=== PATIENT | male | born 1955 | race Two or more races ===

== ENCOUNTER → 2020-10-09 | Outpatient (CLI) | payer OTHER | END | disposition home or self-care (01) | LOC: LAB 06:42 | PROVIDERS: ATTEND Nurse Practitioner Family | DX: N39.0 Urinary tract infection, site not specified (principal); R30.0 Dysuria; R82.90 Unspecified abnormal findings in urine | CPT/HCPCS: 87086 ==

== ENCOUNTER 2022-11-09 18:51 | Emergency (ER) | payer OTHER ==
[~2022-11-09] VITALS: Ht 157.5 cm; Wt 73.5 kg
[2022-11-09] MEDS ORDERED: TETRACAINE HCL 0.5% OPTH(EYE) SOLN 4ML RIGHTEYE ONE (23:00)
[2022-11-09] MEDS ORDERED: CIPR0.3S4 OP (23:29)
[2022-11-09 23:54] VITALS: BP 165/81; PULSE 79; RESP 19; TEMP 98; O2SAT 97
== END 2022-11-09 23:51 | disposition home or self-care (01) ==
LOC: ER 18:51
DX: T15.11XA Foreign body in conjunctival sac, right eye, initial encounter (principal); I10 Essential (primary) hypertension; F17.210 Nicotine dependence, cigarettes, uncomplicated; Z79.2 Long term (current) use of antibiotics; X58.XXXA Exposure to other specified factors, initial encounter; Y93.89 Activity, other specified; Y92.89 Other specified places as the place of occurrence of the external cause; Y99.8 Other external cause status

== ENCOUNTER 2024-01-03 10:55 | Emergency (ER) | payer BC, OTHER ==
[~2024-01-03] VITALS: Ht 157.5 cm; Wt 69.1 kg
[~2024-01-03 10:55] MED LIST: CIPR0.3S19 OP
[2024-01-03 12:01] VITALS: BP 169/98; PULSE 91; RESP 18; TEMP 98.4; O2SAT 94
[2024-01-03] MEDS ORDERED: MELO15TA29 PO (13:00)
[2024-01-03] MEDS ORDERED: PRED20TA2 PO (13:00)
[2024-01-03] MEDS ORDERED: LIDO5DIS21 TOP (13:01)
[2024-01-03] MEDS ORDERED: TRAM50TA2 PO (13:09)
== END 2024-01-03 13:01 | disposition home or self-care (01) ==
LOC: ER 11:05
DX: M25.511 Pain in right shoulder (principal); I10 Essential (primary) hypertension; F17.210 Nicotine dependence, cigarettes, uncomplicated; Z79.899 Other long term (current) drug therapy
CPT/HCPCS: 73030

== ENCOUNTER 2024-04-09 20:25 | Inpatient (IN) | payer BC ==
[~2024-04-09] VITALS: Ht 154.9 cm; Wt 65.4 kg
[2024-04-09 20:00] VITALS: PULSE 18; PULSE 85; RESP 18; O2SAT 95
[~2024-04-09 20:25] MED LIST changes: +LIDO5DIS21 TOP; +PRED20TA2 PO; +TRAM50TA2 PO
--- NOTE | 2024-04-09 21:12 | ED.PDOC ---
GI ASSESSMENT HPI Comments HPI: HPI: Poor Historian. 69-year-old male presents to emergency department for evaluation of rectal bleeding for at least two weeks that is progressively getting worse. Patient has history of ulcerative colitis and was supposed to be on infusions once a week for two months and then once every eight weeks. Patient only has a total of two infusion doses and stopped because he could not afford it anymore. That is when his bleeding started to worsen. Patient complains of left-sided abdominal pain nonspecific nonradiating. Patient is not on blood thinners. Past Medcial History: Chronic leg and back pain, ulcerative colitis, hypertension Past Surgical History: Knee surgery, hernia surgery Initial Vital Signs: Temp: 97.9F HR: 100 RR: 16 BP: 121/76 SpO2: 96% prince, REVIEW OF SYSTEMS: CONSTITUTIONAL: Denies acute: fever, diaphoresis, chills, generalized weakness. HEAD: Denies acute: headache, photophobia Eyes: Denies acute: Double vision, vision loss, eye pain, eye discharge. EARS: Denies acute: tinnitus, hearing loss, ear discharge, ear pain, THROAT: Denies acute: sore throat, swelling, difficulty swallowing , pain with swallowing, change in voice. NECK: Denies acute: neck pain, neck swelling, stiff neck. HEART: Denies acute : chest pain, palpitations, LUNGS: Denies acute: SOB, wheezing, cough, hemoptysis ABDOMEN: Denies acute: Vomiting, , melena , hematemesis, SKIN: Denies acute: rash, redness, lesions, itchiness. EXTREMITIES: Denies acute: calf pain, numbness, tingling, weakness, denies pain in extremity. Denies acute: Low back pain. Neuro: Denies acute: focal neurological deficit, motor or sensory focal neurological deficit, tremors, seizure like activity, confusion, dizziness, change in mental status, loss of bowel or bladder function, cauda equina like symptoms. : Denies acute: dysuria, hematuria, flank pain, increase in urinary frequency. PSYCH: Denies acute: hallucination, suicidal ideation, homicidal ideation. PHYSICAL EXAM: General: no acute distress, awake and alert. Head: normocephalic, atraumatic. Neck: supple, trachea is midline, no swelling. Throat: Normal phonation. Eyes:, no erythema, no purulent discharge, no proptosis, no icterus. Heart: regular rate, regular rhythm, no significant murmur appreciated. Lungs: no apparent respiratory distress, Able to speak in full sentences. No wheezing, no rhonchi, no crackles. No stridors Clear to auscultation bilaterally. Abdomen: Left-sided tender to palpation, non distended, soft, no guarding, no rebound, + bowel sounds. Neuro: Awake, Alert, oriented to name, self, situation, follows commands GCS=15. Speech is normal. Skin: no petechia, no purpura, no cyanosis, non-pale, not jaundice. Lower extremities: --no - Pitting edema no deformity, no focal swelling, no calf TTP. Makes eye contact. moves all four extremities. Face: no apparent facial droop. Chief Complaint: GI Bleed Time Seen by MD: 20:28 Primary Care Provider: UNKNOWN Reviewed Notes: Nurses Notes, Allergies Allergies: Coded Allergies: NO KNOWN ALLERGIES (Unverified , 11/09/22) Home Meds Active Scripts Tramadol Hcl (Tramadol Hcl) 50 Mg Tab, 50 MG PO Q8HP PRN for 10 Days, #30 TAB 0 Refills Prov:MOO GAUTHIER NP 01/03/24 Lidocaine (LIDODERM 5% TOPICAL PATCH) 1 Patch Ph, 1 PATCH TOP DAILY for 30 Days, #30 PATCH 0 Refills Prov:MOO GAUTHIER NP 01/03/24 Prednisone (Prednisone) 20 Mg Tab, 40 MG PO DAILY for 5 Days, #10 TAB 0 Refills Prov:MOO GAUTHIER NP 01/03/24 Ciprofloxacin Hcl (Ophth) (Ciprofloxacin Hcl) 0.3 % Dipika, 2 DROP OP QID for 5 Days, #1 BOTTLE 0 Refills Prov:MERVIN BALDERRAMA 11/09/22 Information Source: Patient Past Medical History PAST MEDICAL HISTORY: HTN Surgical History: Denies all surgeries Family History Family History: Reviewed,noncontributory to illness Social History Smoker: Cigarettes Alcohol: Occasionally Drugs: Denies Drug Use Lives In: Home Was a procedure done? Was a procedure done?: No X-Ray, Labs, Meds, VS Vital Signs Date Time Temp Pulse Resp B/P (MAP) Pulse Ox O2 Delivery O2 Flow Rate FiO2 04/09/24 20:45 97.9 100 16 121/76 (91) 96 Lab Test 04/09/24 21:29 Range/Units White Blood Count 9.8 4.4-10.8 10^3/uL Red Blood Count 4.39 L 4.5-5.90 10^6/uL Hemoglobin 11.6 L 13.5-17.5 g/dL Hematocrit 35.7 L 41.0-53.0 % Mean Corpuscular Volume 81.2 80.0-100.0 fL Mean Corpuscular Hemoglobin 26.5 L 28.0-32.0 pg Mean Corpuscular Hemoglobin Concent 32.6 32.0-36.0 g/dL Red Cell Distribution Width 16.7 H 11.8-14.3 % Platelet Count 373 140-450 10^3/uL Mean Platelet Volume 6.5 L 6.9-10.8 fL Neutrophils (%) (Auto) 72.9 37.0-80.0 % Lymphocytes (%) (Auto) 15.3 10.0-50.0 % Monocytes (%) (Auto) 9.3 0.0-12.0 % Eosinophils (%) (Auto) 2.1 0.0-7.0 % Basophils (%) (Auto) 0.4 0.0-2.0 % Neutrophils # (Auto) 7.2 1.6-8.6 10 ^3/uL Lymphocytes # (Auto) 1.5 0.4-5.4 10 ^3/uL Monocytes # (Auto) 0.9 0-1.3 10 ^3/uL Eosinophils # (Auto) 0.2 0-0.8 10 ^3/uL Basophils # (Auto) 0 0-0.2 10 ^3/uL Nucleated Red Blood Cells 0.1 % Erythrocyte Sedimentation Rate 17 0-20 mm/hr Sodium Level 137 136-145 mmol/L Potassium Level 3.9 3.5-5.1 mmol/L Chloride Level 103 98-107 mmol/L Carbon Dioxide Level 29 20-31 mmol/L Anion Gap 5 5-15 Blood Urea Nitrogen 13 9-23 mg/dL Creatinine 1.17 0.700-1.30 mg/dL Glomerular Filtration Rate Calc 68 >90 mL/min BUN/Creatinine Ratio 11.1 10.0-20.0 Serum Glucose 158 H 74-106 mg/dL Hemoglobin A1c 5.5 <5.7 % A1C Lactic Acid Level 1.2 0.4-2.0 mmol/L Calcium Level 9.7 8.7-10.4 mg/dL Iron Level 71 65-175 ug/dL Total Iron Binding Capacity 312 250-425 ug/dL Percent Iron Saturation 22.8 20-55 % Ferritin 24.0 22-322 ng/mL Total Bilirubin 0.5 0.2-1.0 mg/dL Aspartate Amino Transferase (AST) 25 13-40 U/L Alanine Aminotransferase (ALT) 28 7-40 U/L Alkaline Phosphatase 121 H 46-116 U/L Troponin I High Sensitivity < 3 L </=54 ng/L C-Reactive Protein High Sensitivity 1.74 H <1.0 mg/dL Total Protein 6.2 5.7-8.2 g/dL Albumin 3.9 3.2-4.8 g/dL Lipase 41 12-53 U/L Thyroid Stimulating Hormone (TSH) 2.22 0.55-4.78 uIU/mL [place] [address] Ph: [phone] DIAGNOSTIC IMAGING Diagnostic Imaging Report : [id number] Signed PATIENT: KARISHMA PRINCE ACCT: [id number] UNIT: [id number] : 1955 LOC: ER ROOM / BED: / AGE / SEX: 69 / M ADM STATUS: REG ER SERVICE 02 ORDERING PHYSICIAN: RAKESH HILL DO PROCEDURE(s): ABPL - CT AB PEL WO CON-NO ORAL OR IV REASON: rectal bleed ORDER NUMBER(s): [id number], ACCESSION NUMBER(s): [id number] Exam: CT CT AB PEL WO CON-NO ORAL OR IV History: rectal bleed Comparison Study: None available at time of dictation. TECHNIQUE: Multidetector CT of the abdomen was performed from lung bases to pubic symphysis. Imaging was performed without IV contrast. Axial, coronal and sagittal multiplanar reformats were obtained from the axial data set by the technologist. Radiation Dose Information: CT Dose: CTDI volume is 7.35 mGy. Dose-length product is 362.28 mGy*cm FINDINGS: Evaluation of solid organs is limited due to lack of intravenous contrast use. Findings: Lung Bases: No acute or significant lung base finding. Normal heart size. No pleural or pericardial effusion. Small cyst left lobe of the liver. Scattered coronary artery calcifications. Liver: The liver is normal in size. No focal lesions. Gallbladder and Biliary Tree: Unremarkable Spleen: Unremarkable Pancreas: The pancreas is grossly normal in appearance. Adrenal Glands: Unremarkable Kidneys: Punctate nonobstructing calculi kidneys bilaterally Bladder: Grossly unremarkable for degree of distention. Bowel: The stomach is grossly normal in appearance. Small bowel and colon are normal in caliber and distribution. Mild mucosal thickening of the rectum. The appendix is not visualized; however, no secondary findings of acute appendicitis identified. Ascites: Absent Lymphadenopathy: No mesenteric, retroperitoneal or periportal lymphadenopathy. Abdominal Wall and Mesentery: Unremarkable. Vasculature: The visualized abdominal aorta is normal in size and caliber. Evaluation of abdominal and pelvic vessels is limited due to lack of intravenous contrast. Pelvic Organs: Unremarkable Musculoskeletal: No aggressive focal bony lesions, acute fractures or di slocation. Compression fracture T10 Soft tissues: Unremarkable IMPRESSION: 1. Mild mucosal thickening of the rectum. 2. No findings of bowel obstruction 3. No free air or free fluid 4. Punctate nonobstructing calculi the right and left kidneys. 5. Compression fracture T10 Radiation optimization: All CT scans at this facility use at least one of these dose optimization techniques: automated exposure control mA and/or kV adjustment per patient size (includes targeted exams where dose is matched to clinical indication) or iterative reconstruction. ATED BY: GLENDA GARZA Jr., DO DICTATED DATE/TIME: 04/09/242152 SIGNED BY: GLENDA GARZA Jr., DO SIGNED DATE/TIME: 04/09/242152 CC: Reevaluation 1ST: Unchanged Patient Education/Counseling: Diagnosis, Treatment, Prognosis Family Education/Counseling: No Family Present Departure 1 Departure Time of Disposition: 22:15 Impression: Primary Impression: Rectal bleeding Additional Impression: Compression fracture of T10 vertebra Disposition: ADMITTED INPATIENT Condition: Guarded Discharged With: Self Critical Care Note Critical Care Time?: No I personally scribed for RAKESH HILL DO ([email or web address]) on 04/09/24 at 21:12. Electronically submitted by Guerrero Brand ([email or web address]). I personally scribed for RAKESH HILL DO ([email or web address]) on 04/09/24 at 21:58. Electronically submitted by Guerrero Brand ([email or web address]). I personally scribed for RAKESH HILL DO ([email or web address]) on 04/10/24 at 01:51. Electronically submitted by Hira Damno ([email or web address]). RAKESH HILL DO Apr 09, 2024 21:12
--- NOTE | 2024-04-09 21:56 | DVH ---
Exam: CT CT AB PEL WO CON-NO ORAL OR IV History: rectal bleed Comparison Study: None available at time of dictation. TECHNIQUE: Multidetector CT of the abdomen was performed from lung bases to pubic symphysis. Imaging was performed without IV contrast. Axial, coronal and sagittal multiplanar reformats were obtained fr om the axial data set by the technologist. Radiation Dose Information: CT Dose: CTDI volume is 7.35 mGy. Dose-length product is 362.28 mGy*cm FINDINGS: Evaluation of solid organs is limited due to lack of intravenous contrast use. Findings: Lung Bases: No acute or significant lung base finding. Normal heart size. No pleural or pericardial effusion. Small cyst left lobe of the liver. Scattered coronary artery calcifications. Liver: The liver is normal in size. No focal lesions. Gallbladder and Biliary Tree: Unremarkable Spleen: Unremarkable Pancreas: The pancreas is grossly normal in appearance. Adrenal Glands: Unremarkable Kidneys: Punctate nonobstructing calculi kidneys bilaterally Bladder: Grossly unremarkable for degree of distention. Bowel: The stomach is grossly normal in appearance. Small bowel and colon are normal in caliber and d istribution. Mild mucosal thickening of the rectum. The appendix is not visualized; however, no seco ndary findings of acute appendicitis identified. Ascites: Absent Lymphadenopathy: No mesenteric, retroperitoneal or periportal lymphadenopathy. Abdominal Wall and Mesentery: Unremarkable. Vasculature: The visualized abdominal aorta is normal in size and caliber. Evaluation of abdominal a nd pelvic vessels is limited due to lack of intravenous contrast. Pelvic Organs: Unremarkable Musculoskeletal: No aggressive focal bony lesions, acute fractures or dislocation. Compression fractu re T10 Soft tissues: Unremarkable IMPRESSION: 1. Mild mucosal thickening of the rectum. 2. No findings of bowel obstruction 3. No free air or free fluid 4. Punctate nonobstructing calculi the right and left kidneys. 5. Compression fracture T10 Radiation optimization: All CT scans at this facility use at least one of these dose optimization te chniques: automated exposure control mA and/or kV adjustment per patient size (includes targeted exa ms where dose is matched to clinical indication) or iterative reconstruction.
[2024-04-09 22:00] LABS: Eosinophils # (auto) 0.2 10 ^3/uL (0-0.8); Lymphocytes # (auto) 1.5 10 ^3/uL (0.4-5.4)
[2024-04-09 22:03] LABS: Basophils # (auto) 0 10 ^3/uL (0-0.2); Basophils % (auto) 0.4 % (0.0-2.0); Eosinophils % (auto) 2.1 % (0.0-7.0); Hematocrit 35.7 % (41.0-53.0); Hemoglobin 11.6 g/dL (13.5-17.5); Lymphocytes % (auto) 15.3 % (10.0-50.0); Mean Corpuscular Hemoglobin 26.5 pg (28.0-32.0); Mean Corpuscular Hgb Conc. 32.6 g/dL (32.0-36.0); Mean Corpuscular Volume 81.2 fL (80.0-100.0); Monocytes # (auto) 0.9 10 ^3/uL (0-1.3); Monocytes % (auto) 9.3 % (0.0-12.0); Neutrophils # (auto) 7.2 10 ^3/uL (1.6-8.6); Neutrophils % (auto) 72.9 % (37.0-80.0); Nucleated Red Blood Cells % 0.1 %; Platelet Count (auto) 373 10^3/uL (140-450); Red Blood Cells 4.39 10^6/uL (4.5-5.90); Red Cell Distribution Width 16.7 % (11.8-14.3); White Blood Cell 9.8 10^3/uL (4.4-10.8)
[2024-04-09 22:13] LABS: Alanine Aminotransferase 28 U/L (7-40); Albumin 3.9 g/dL (3.2-4.8); Anion Gap 5 (5-15); Aspartate Aminotransferase 25 U/L (13-40); BUN/Creatinine Ratio 11.1 (10.0-20.0); Bilirubin, Total 0.5 mg/dL (0.2-1.0); Blood Urea Nitrogen 13 mg/dL (9-23); Calcium 9.7 mg/dL (8.7-10.4); Carbon Dioxide 29 mmol/L (20-31); Chloride 103 mmol/L (98-107); Lipase 41 U/L (12-53); Potassium 3.9 mmol/L (3.5-5.1); Sodium 137 mmol/L (136-145); Total Protein 6.2 g/dL (5.7-8.2)
[2024-04-09 22:15] LABS: Alkaline Phosphatase 121 U/L (46-116); Glucose 158 mg/dL (74-106)
--- NOTE | 2024-04-09 22:49 | DVHHPRES ---
History of Present Illness Resident Creating Document: VIKTORIA DAVILA RESIDENT History of Present Illness 69-year-old male with past medical history of hypertension, ulcerative colitis presented to the ED with a chief complaint of rectal bleeding for 2 weeks prior to this admission. He has history of ulcerative colitis and was supposed to be on infusion once a week for 2 month and then every 8 weeks but patient took only 2 infusions and discontinued the infusion due to financial strain. After that he started experiencing bleeding during bowel movement and in 1st week 1 or 2 ti mes blood mixed with stool but for last 1 week he has more than 7 or 8 times fresh blood with bowel movement and the consistency of the stool is soft. The patient also complains of left lower abdominal pain , colicky in nature ,09/10, radiates to the back without any aggravating factor and relieved after bowel movement and associated with nausea and dizziness. He denies any blood thinner use, chest pain, shortness of breath , vomiting, hematuria, dysuria or any sick contact. Past Medical History Hypertension, ulcerative colitis Past Surgical History Hernia repair, knee surgery Family History None Past Social History Lives with family Nonsmoker, nonalcoholic and never tried any drugs Review of Systems Constitutional: No: Fever, Chills, Sweats, Weakness, Malaise, Other Eyes: No: Pain, Vision change, Conjunctivae inflammation, Eyelid inflammation, Other, Redness ENT: No: Ear pain, Ear discharge, Nose pain, Nose discharge, Nose congestion, Mouth pain, Mouth swelling, Throat pain, Throat swelling, Other Respiratory: No: Cough, Dry, Shortness of breath, SOB with excertion, Wheezing, Hemoptysis, Pleuritic Pain, Sputum, Wheezing, Other Cardiovascular: Lt Headedness; No: Chest Pain, Palpitations, Orthopnea, Paroxysmal Noc. Dyspnea, Edema, Other Gastrointestinal: Nausea, Hematochezia; No: Vomiting, Abdominal Pain, Diarrhea, Constipation, Melena, Other Genitourinary: No Dysuria, No Frequency, No Incontinence, No Hematuria, No Retention, No Other Musculoskeletal: No: other, neck pain, shoulder pain, arm pain, back pain, hand pain, leg pain, foot pain Skin: No: Rash, Lesions, Jaundice, Bruising, Other Neurological: No: Weakness, Numbness, Incoordination, Change in speech, Confusion, Seizures, Other Allergies: Coded Allergies: NO KNOWN ALLERGIES (Unverified , 11/09/22) Exam Vital Signs Vital Signs Date Time Temp Pulse Resp B/P (MAP) Pulse Ox O2 Delivery O2 Flow Rate FiO2 04/09/24 20:45 97.9 100 16 121/76 (91) 96 Exam Physical examination: General Appearance: Alert, Oriented X3, Cooperative, mild distress HEENT: Atraumatic, PERRLA, EOMI, Mucous membrane moist/pink Respiratory: Clear to auscultation, Normal air movement Cardiovascular: Regular rate, Normal S1, Normal S2, No murmurs, no chest wall tenderness Abdominal: Normal bowel sounds, Soft, No tenderness, No hepatospenomegaly, No masses Extremities: No clubbing, No cyanosis, No edema, Normal pulses, No tenderness/swelling Skin: No rashes, No breakdown, No significant lesion Neuro: Normal gait, Normal speech, Strength at 5/5 X4 ext, Normal tone, Sensation intact, grossly intact cranial nerves. Psych/Mental Status: Mental status NL, Mood NL Labs/Xrays Labs Test 04/09/24 21:29 Range/Units White Blood Count 9.8 4.4-10.8 10^3/uL Red Blood Count 4.39 L 4.5-5.90 10^6/uL Hemoglobin 11.6 L 13.5-17.5 g/dL Hematocrit 35.7 L 41.0-53.0 % Mean Corpuscular Volume 81.2 80.0-100.0 fL Mean Corpuscular Hemoglobin 26.5 L 28.0-32.0 pg Mean Corpuscular Hemoglobin Concent 32.6 32.0-36.0 g/dL Red Cell Distribution Width 16.7 H 11.8-14.3 % Platelet Count 373 140-450 10^3/uL Mean Platelet Volume 6.5 L 6.9-10.8 fL Neutrophils (%) (Auto) 72.9 37.0-80.0 % Lymphocytes (%) (Auto) 15.3 10.0-50.0 % Monocytes (%) (Auto) 9.3 0.0-12.0 % Eosinophils (%) (Auto) 2.1 0.0-7.0 % Basophils (%) (Auto) 0.4 0.0-2.0 % Neutrophils # (Auto) 7.2 1.6-8.6 10 ^3/uL Lymphocytes # (Auto) 1.5 0.4-5.4 10 ^3/uL Monocytes # (Auto) 0.9 0-1.3 10 ^3/uL Eosinophils # (Auto) 0.2 0-0.8 10 ^3/uL Basophils # (Auto) 0 0-0.2 10 ^3/uL Nucleated Red Blood Cells 0.1 % Sodium Level 137 136-145 mmol/L Potassium Level 3.9 3.5-5.1 mmol/L Chloride Level 103 98-107 mmol/L Carbon Dioxide Level 29 20-31 mmol/L Anion Gap 5 5-15 Blood Urea Nitrogen 13 9-23 mg/dL Creatinine 1.17 0.700-1.30 mg/dL Glomerular Filtration Rate Calc 68 >90 mL/min BUN/Creatinine Ratio 11.1 10.0-20.0 Serum Glucose 158 H 74-106 mg/dL Lactic Acid Level 1.2 0.4-2.0 mmol/L Calcium Level 9.7 8.7-10.4 mg/dL Total Bilirubin 0.5 0.2-1.0 mg/dL Aspartate Amino Transferase (AST) 25 13-40 U/L Alanine Aminotransferase (ALT) 28 7-40 U/L Alkaline Phosphatase 121 H 46-116 U/L Troponin I High Sensitivity < 3 L </=54 ng/L Total Protein 6.2 5.7-8.2 g/dL Albumin 3.9 3.2-4.8 g/dL Lipase 41 12-53 U/L Assessment/Plan Assessment/Plan Assessment and plan: # Lower GI bleeding likely secondary to flare-up of ulcerative colitis # Acute proctitis likely due to flare-up of ulcerative colitis # Normocytic anaemia likely secondary to perrectal bleeding - CT abdomen pelvis without contrast revealed mild mucosal thickening of the rectum. - Iron profile and ferritin are normal - Elevated C reactive protein - NPO - IV normal saline at 75 ml/hr - IV protonix 40 mg b.i.d - Mesalamine rectal enema 4 gm once over night and daily at HS - Morphine 2 mg IV q.4 p.r.n. - IV ondansetron 4 mg Q 8 p.r.n. - Monitor H/H - Ordered stool occult blood, stool bacterial culture and C-diff toxin study. - Consulted GI # DVT prophylaxis - Hold due to GI bleeding. Goal of care discussed with the patient for more than 17 minutes full code Plan discussed with Dr. Diamond Plan discussed with: Patient, Other My Orders Orders - VIKTORIA DAVILA Procedure Category Date Status Time Admit ADMIT 04/09/24 Transmitted 22:23 Gunner'S Mate M For HAM 04/09/24 In Process 24 Hours 22:23 Sodium Chloride 0.9% PHA 04/09/24 Logged 22:45 Pantoprazole PHA 04/10/24 Logged (Protonix) 10:00 Mesalamine Rectal PHA 04/10/24 Logged (Rowasa Rectal) 22:00 Mesalamine Rectal PHA 04/09/24 Logged (Rowasa Rectal) 22:45 Morphine Sulfate PHA 04/10/24 Logged Injection 02:00 Ondansetron Hcl PHA 04/10/24 Logged (Zofran) 06:00 C-Reactive Protein LAB 04/09/24 Logged 22:34 Erythrocyte LAB 04/09/24 Logged Sedimentation Rate 22:34 Date of Service: Apr 09, 2024 Billing Provider: YOLIS DIAMOND MD Common Visit Codes: 03179-[id number] INP/OBS CARE (HIGH) Secondary Visit Codes: 63424-[id number] CARE PLAN 30 MINUTES VIKTORIA DAVILA Apr 09, 2024 22:49 YOLIS DIAMOND MD Apr 10, 2024 17:56
[2024-04-09 23:42] LABS: % Iron Saturation 22.8 % (20-55)
[2024-04-10 00:19] LABS: Erythrocyte Sedimentation Rate 17 mm/hr (0-20)
[2024-04-10] MEDS ORDERED: MORPHINE SULFATE INJ 2 MG/ml SYRG IV SCH (02:00)
[2024-04-10] MEDS: SODIUM CHLORIDE 0.9% 500 ML IV ONE (03:55)
[2024-04-10] MEDS: ONDANSETRON HCL 4 MG/2 ML VIAL IV PRN (04:20)
[2024-04-10] MEDS: PANTOPRAZOLE 40 MG/10 ML VIAL INJ IV ONE (04:20)
[2024-04-10] MEDS: SODIUM CHLORIDE 0.9% 1,000 ML IV SCH (04:22)
[2024-04-10] MEDS: MORPHINE SULFATE INJ 2 MG/ml SYRG IV PRN (05:07)
[2024-04-10 06:00] VITALS: PULSE 68; RESP 16; O2SAT 96
[2024-04-10] MEDS: MESALAMINE 4 GM/60 ML RC PR ONE (08:30)
[2024-04-10] MEDS: PANTOPRAZOLE 40 MG/10 ML VIAL INJ IV SCH (10:24)
[2024-04-10 10:48] VITALS: PULSE 69; RESP 14; O2SAT 97
[2024-04-10] MEDS: predniSONE 20 MG TAB PO SCH (13:23)
--- NOTE | 2024-04-10 13:44 | DVHINCON2 ---
GI Consult Consult Note GI consult note Date of Consultation: 04/10/2024 Chief Complaint: Rectal bleeding Referring Physician: Dr. Burns H&P: 69-year-old male admitted with rectal bleed, on and off for one-week got worse worse in one day Patient has abdominal pain periumbilical area, for two weeks progressively getting worse Patient has nausea. No vomiting. Patient has history of ulcerative colitis, treated with Humira. Seen by gastro group. Last colonoscopy two years ago. Patient was scheduled for an outpatient colonoscopy March 2024, was not completed due to insurance issues Patient also complains of back pain which is radiating down his legs Past Medical History: HTN, ulcerative colitis Past Surgical History: Knee surgery, hernia repair Social History: NO smoking, drinking ETOH and use of illegal drugs. Family History: Noncontributory Review of Systems: Constitutional: no fever, chill, weight loss HEENT: no eye pain, no hearing loss, no oral lesion, no scleral icterus Heart: no chest pain, no chest pressure Lung: no cough, no dyspnea with exertion Abdomen: see HPI Physical exam: General: NAD, AAOX3 Chest: lung shaw clear to auscultation Heart: RRR, no murmur Abdomen: non-distended, mild tenderness to palpation, +BS Labs: Labs Test 04/09/24 21:29 Range/Units White Blood Count 9.8 4.4-10.8 10^3/uL Red Blood Count 4.39 L 4.5-5.90 10^6/uL Hemoglobin 11.6 L 13.5-17.5 g/dL Hematocrit 35.7 L 41.0-53.0 % Mean Corpuscular Volume 81.2 80.0-100.0 fL Mean Corpuscular Hemoglobin 26.5 L 28.0-32.0 pg Mean Corpuscular Hemoglobin Concent 32.6 32.0-36.0 g/dL Red Cell Distribution Width 16.7 H 11.8-14.3 % Platelet Count 373 140-450 10^3/uL Mean Platelet Volume 6.5 L 6.9-10.8 fL Neutrophils (%) (Auto) 72.9 37.0-80.0 % Lymphocytes (%) (Auto) 15.3 10.0-50.0 % Monocytes (%) (Auto) 9.3 0.0-12.0 % Eosinophils (%) (Auto) 2.1 0.0-7.0 % Basophils (%) (Auto) 0.4 0.0-2.0 % Neutrophils # (Auto) 7.2 1.6-8.6 10 ^3/uL Lymphocytes # (Auto) 1.5 0.4-5.4 10 ^3/uL Monocytes # (Auto) 0.9 0-1.3 10 ^3/uL Eosinophils # (Auto) 0.2 0-0.8 10 ^3/uL Basophils # (Auto) 0 0-0.2 10 ^3/uL Nucleated Red Blood Cells 0.1 % Erythrocyte Sedimentation Rate 17 0-20 mm/hr Sodium Level 137 136-145 mmol/L Potassium Level 3.9 3.5-5.1 mmol/L Chloride Level 103 98-107 mmol/L Carbon Dioxide Level 29 20-31 mmol/L Anion Gap 5 5-15 Blood Urea Nitrogen 13 9-23 mg/dL Creatinine 1.17 0.700-1.30 mg/dL Glomerular Filtration Rate Calc 68 >90 mL/min BUN/Creatinine Ratio 11.1 10.0-20.0 Serum Glucose 158 H 74-106 mg/dL Hemoglobin A1c 5.5 <5.7 % A1C Lactic Acid Level 1.2 0.4-2.0 mmol/L Calcium Level 9.7 8.7-10.4 mg/dL Iron Level 71 65-175 ug/dL Total Iron Binding Capacity 312 250-425 ug/dL Percent Iron Saturation 22.8 20-55 % Ferritin 24.0 22-322 ng/mL Total Bilirubin 0.5 0.2-1.0 mg/dL Aspartate Amino Transferase (AST) 25 13-40 U/L Alanine Aminotransferase (ALT) 28 7-40 U/L Alkaline Phosphatase 121 H 46-116 U/L Troponin I High Sensitivity < 3 L </=54 ng/L C-Reactive Protein High Sensitivity 1.74 H <1.0 mg/dL Total Protein 6.2 5.7-8.2 g/dL Albumin 3.9 3.2-4.8 g/dL Lipase 41 12-53 U/L Thyroid Stimulating Hormone (TSH) 2.22 0.55-4.78 uIU/mL Imaging: CT abdomen pelvis IMPRESSION: 1. Mild mucosal thickening of the rectum. 2. No findings of bowel obstruction 3. No free air or free fluid 4. Punctate nonobstructing calculi the right and left kidneys. 5. Compression fracture T10 Assessment: GI bleed Abdominal pain Ulcerative colitis Back pain Plan: Discussed with Dr. Chase Mesalamine, prednisone Clear liquid diet Monitor labs in a.m. Possible plan for outpatient follow-up for ulcerative colitis, and elective colonoscopy as needed We will continue to monitor the patient Thank you for the consult Date of Service: Apr 10, 2024 Billing Provider: JIMENEZ GALICIA Common Visit Codes: CONSULT ONLY Consultation Codes: [id number] CONSULT <45MIN JIMENEZ GALICIA Apr 10, 2024 13:44
[2024-04-10] MEDS: MESALAMINE 400mg Delayed Release Cap PO SCH (14:46)
--- NOTE | 2024-04-10 15:30 | DVHPNRES ---
Progress Note Date Seen: Apr 10, 2024 Resident Creating Document: IGNACIA WEISS RESIDENT Medical Necessity Reason Pt with a Central, PICC or Fol: No Subjective Review of Systems 69-year-old male with past medical history of hypertension, ulcerative colitis presented to the ED with a chief complaint of rectal bleeding for 2 weeks prior to this admission. He has history of ulcerative colitis and was supposed to be on infusion once a week for 2 month and then every 8 weeks but patient took only 2 infusions and discontinued the infusion due to financial strain. After that he started experiencing bleeding during bowel movement and in 1st week 1 or 2 times blood mixed with stool but for last 1 week he has more than 7 or 8 times fresh blood with bowel movement and the consistency of the stool is soft. The patient also complains of left lower abdominal pain , colicky in nature ,6/10, radiates to the back without any aggravating factor and relieved after bowel movement and associated with nausea and dizziness. Reported patient tried mesalamine once before which initially worked then stopped working. Then his epic ambulatory specialists started him on [employer] later on Dr. Non-switch him to Enter[employer]. He denies any blood thinner use, chest pain, shortness of breath , vomiting, hematuria, dysuria or any sick contact. Lab workup revealed hemoglobin 11.6, GFR 68, alkaline phosphatase 121, CRP 1.74. CT abdomen and pelvis revealed- Mild mucosal thickening of the rectum. No findings of bowel obstruction. No free air or free fluid. Punctate nonobstructing calculi the right and left kidneys. Compression fracture T10 Past Medical History-Hypertension, ulcerative colitis Past Surgical History-Hernia repair, knee surgery Family History-None Past Social History-Lives with family, Nonsmoker, nonalcoholic and never tried any drugs Allergy-NKDA Patient was seen today at the bedside. Cardiovascular- deny acute chest pain or shortness of breath or cough or palpitation Respiratory-denies cough or short of breath or wheezing Gastrointestinal- denies any rectal bleeding, nausea or vomiting Musculoskeletal-denies acute joint swelling or tenderness or redness Neurological- denies acute dysarthria, dysphagia, change in vision Psychiatry- denies depression or SI or HI Skin- denies acute rash or purpura Objective vital signs Vital Sign Date Time Temp Pulse Resp B/P (MAP) Pulse Ox O2 Delivery O2 Flow Rate FiO2 04/10/24 15:00 68 12 114/73 (87) 94 04/10/24 10:48 Room Air* 0 21 04/10/24 09:00 98.7 98.7 medications Current Medications Medications Dose Ordered Sig/Sagrario Route Start Time Stop Time Status Last Admin Dose Admin Sodium Chloride 1,000 ml @ 75 mls/hr [id number] IV 04/09/24 22:45 04/10/24 12:05 75 MLS/HR Pantoprazole Sodium 40 mg BID IV 04/10/24 10:00 04/10/24 10:24 40 MG Ondansetron HCl 4 mg Q8HPRN PRN IV 04/10/24 06:00 04/10/24 04:20 4 MG Morphine Sulfate 2 mg Q4HPRN PRN IV 04/10/24 05:00 04/10/24 14:47 2 MG Prednisone 40 mg DAILY PO 04/10/24 10:00 04/10/24 13:23 40 MG Mesalamine 800 mg TID PO 04/10/24 14:00 04/10/24 14:46 800 MG Examination General examination- awake, alert, conversant, HEENT- PEERLA, no acute nasal discharge Cardiovascular- S1-S2 audible, rate and rhythm regular, no murmur Respiratory- CTAB, no wheeze or rhonchi Gastrointestinal-mild abdominal tenderness+, bowel sound+. Nondistended Musculoskeletal-no acute joint swelling or tenderness or redness# Lower extremity- no leg edema Neurological- cranial nerves intact, no acute dysarthria or dysphagia Psychiatry- denies depression or SI or HI Skin- no acute rash or purpura laboratory and microbiology Laboratory Tests 04/09/24 21:29 Test 04/09/24 21:29 Range/Units Serum Glucose 158 H 74-106 mg/dL Problem List/Assessment/Plan Problem List/Assessment/Plan # Lower GI bleeding likely secondary to flare-up of ulcerative colitis # suspected acute exacerbation of ulcerative colitis # Acute proctitis likely due to flare-up of ulcerative colitis # Normocytic anaemia likely secondary to per-rectal bleeding #Punctate nonobstructing calculi the right and left kidneys. #Back pain- Compression fracture T10 Continue mesalamine 800 mg p.o. t.i.d. Continue IV normal saline 75 mL/hour Continue prednisolone 40 mg p.o. daily Continue pantoprazole 40 mg daily Goals of care/advance care planning; FULL CODE; discussed with the patient >15 minutes PUD prophylaxis: Pantoprazole DVT prophylaxis: Lovenox Plan discussed with Dr. Tello, nursing staff, patient Total time spent on patient evaluation, chart review, assessment and plan, discussion discussion >30 minutes Plan discussed with: Patient Plan discussed with: Patient, Other (RN) My Orders My Orders Orders - IGNACIA WEISS Procedure Category Date Status Time Clear Liq Diet DIET 04/10/24 Transmitted Lunch Date of Service: Apr 10, 2024 Billing Provider: BUCK TELLO MD Common Visit Codes: [id number] INP/OBS CARE(HIGH) Secondary Visit Codes: 89229-[id number] CARE PLAN 30 MINUTES IGNACIA WEISS Apr 10, 2024 15:30 BUCK TELLO MD Apr 10, 2024 20:22
[2024-04-10] MEDS: ENOXAPARIN SOD 40 MG/0.4 ML SYRINGE SC ONE (17:09)
[2024-04-10 17:10] VITALS: PULSE 72; RESP 18; O2SAT 96
[2024-04-10 17:17] VITALS: BP 119/67; PULSE 72; RESP 20; TEMP 98; O2SAT 94
[2024-04-10 18:13] LABS: Urine Bacteria None Seen /hpf (None Seen)
[2024-04-10 19:04] LABS: Urine Blood Negative /uL (Negative); Urine Clarity Clear (Clear); Urine Color Light-Yellow (Yellow); Urine Protein, UAD Negative (Negative); Urine Specific Gravity 1.008 (1.001-1.035); Urine Squamous Epithelial Cell None Seen /hpf (<5); Urine Urobilinogen Normal (Negative); Urine WBC 1 /hpf (0 - 3)
[2024-04-10 20:00] VITALS: PULSE 18; PULSE 85; RESP 18; O2SAT 95
[2024-04-10 20:21] VITALS: BP 104/66; PULSE 80; RESP 16; TEMP 98; O2SAT 96
[2024-04-10] MEDS ORDERED: MESALAMINE 4 GM/60 ML RC PR SCH (22:00)
[2024-04-11] MEDS: MELATONIN 5 MG TAB PO ONE (00:22)
[2024-04-11 00:47] VITALS: BP 111/67; PULSE 67; RESP 16; TEMP 97.7; O2SAT 95
[2024-04-11 05:00] VITALS: BP 142/68; PULSE 75; RESP 18; TEMP 97.8; O2SAT 98
[2024-04-11 07:40] LABS: Anion Gap 7 (5-15); Calcium 9.6 mg/dL (8.7-10.4); Carbon Dioxide 24 mmol/L (20-31); Chloride 107 mmol/L (98-107); Potassium 3.6 mmol/L (3.5-5.1); Sodium 138 mmol/L (136-145)
[2024-04-11 07:46] LABS: BUN/Creatinine Ratio 8.1 (10.0-20.0); Magnesium 2.1 mg/dL (1.6-2.6)
[2024-04-11 07:48] LABS: Basophils # (auto) 0 10 ^3/uL (0-0.2); Basophils % (auto) 0.4 % (0.0-2.0); Eosinophils # (auto) 0 10 ^3/uL (0-0.8); Eosinophils % (auto) 0.4 % (0.0-7.0); Hematocrit 30.1 % (41.0-53.0); Hemoglobin 9.9 g/dL (13.5-17.5); Lymphocytes # (auto) 1.7 10 ^3/uL (0.4-5.4); Lymphocytes % (auto) 22.2 % (10.0-50.0); Mean Corpuscular Volume 81.7 fL (80.0-100.0); Monocytes # (auto) 0.8 10 ^3/uL (0-1.3); Monocytes % (auto) 10.7 % (0.0-12.0); Neutrophils # (auto) 5.2 10 ^3/uL (1.6-8.6); Neutrophils % (auto) 66.3 % (37.0-80.0); Nucleated Red Blood Cells % 0.1 %; Platelet Count (auto) 292 10^3/uL (140-450); Red Blood Cells 3.69 10^6/uL (4.5-5.90); Red Cell Distribution Width 16.3 % (11.8-14.3); White Blood Cell 7.8 10^3/uL (4.4-10.8)
[2024-04-11 07:49] LABS: Blood Urea Nitrogen 7 mg/dL (9-23); Glucose 116 mg/dL (74-106)
[2024-04-11 08:00] VITALS: PULSE 66
[2024-04-11 08:36] VITALS: BP 127/75; PULSE 66; RESP 16; TEMP 97.6; O2SAT 99
[2024-04-11] MEDS: ENOXAPARIN SOD 40 MG/0.4 ML SYRINGE SC SCH (09:16)
[2024-04-11] MEDS: traMADol HCL 50 MG TAB PO PRN (09:23)
[2024-04-11 12:30] VITALS: BP 145/87; PULSE 79; RESP 16; TEMP 97.9; O2SAT 99
--- NOTE | 2024-04-11 12:42 | DVHDSRES ---
Discharge Summary Date of Admission Resident Creating Document: IGNACIA WEISS Apr 09, 2024 at 22:23 Date of Discharge: Apr 11, 2024 Labs/Diagnostic Data: Laboratory Results Test 04/11/24 06:04 04/10/24 18:00 04/09/24 21:29 White Blood Count 7.8 10^3/uL (4.4-10.8) Red Blood Count 3.69 10^6/uL (4.5-5.90) Hemoglobin 9.9 g/dL (13.5-17.5) Hematocrit 30.1 % (41.0-53.0) Mean Corpuscular Volume 81.7 fL (80.0-100.0) Mean Corpuscular Hemoglobin 27.0 pg (28.0-32.0) Mean Corpuscular Hemoglobin Concent 33.0 g/dL (32.0-36.0) Red Cell Distribution Width 16.3 % (11.8-14.3) Platelet Count 292 10^3/uL (140-450) Mean Platelet Volume 6.6 fL (6.9-10.8) Neutrophils (%) (Auto) 66.3 % (37.0-80.0) Lymphocytes (%) (Auto) 22.2 % (10.0-50.0) Monocytes (%) (Auto) 10.7 % (0.0-12.0) Eosinophils (%) (Auto) 0.4 % (0.0-7.0) Basophils (%) (Auto) 0.4 % (0.0-2.0) Neutrophils # (Auto) 5.2 10 ^3/uL (1.6-8.6) Lymphocytes # (Auto) 1.7 10 ^3/uL (0.4-5.4) Monocytes # (Auto) 0.8 10 ^3/uL (0-1.3) Eosinophils # (Auto) 0 10 ^3/uL (0-0.8) Basophils # (Auto) 0 10 ^3/uL (0-0.2) Nucleated Red Blood Cells 0.1 % Sodium Level 138 mmol/L (136-145) Potassium Level 3.6 mmol/L (3.5-5.1) Chloride Level 107 mmol/L (98-107) Carbon Dioxide Level 24 mmol/L (20-31) Anion Gap 7 (5-15) Blood Urea Nitrogen 7 mg/dL (9-23) Creatinine 0.86 mg/dL (0.700-1.30) Glomerular Filtration Rate Calc 95 mL/min (>90) BUN/Creatinine Ratio 8.1 (10.0-20.0) Serum Glucose 116 mg/dL (74-106) Calcium Level 9.6 mg/dL (8.7-10.4) Magnesium Level 2.1 mg/dL (1.6-2.6) Urine Color Light-yellow (Yellow) Urine Clarity Clear (Clear) Urine pH 7.0 (5.0-9.0) Urine Specific Declo 1.008 (1.001-1.035) Urine Protein Negative (Negative) Urine Ketones Negative (Negative) Urine Blood Negative /uL (Negative) Urine Nitrite Negative (Negative) Urine Bilirubin Negative (Negative) Urine Urobilinogen Normal mg/dL (Negative) Urine Leukocyte Esterase Negative /uL (Negative) Urine RBC <1 /hpf (0 - 3) Urine WBC 1 /hpf (0 - 3) Urine Squamous Epithelial Cells None seen /hpf (<5) Urine Bacteria None seen /hpf (None Seen) Urine Glucose Normal mg/dL (Normal) Erythrocyte Sedimentation Rate 17 mm/hr (0-20) Hemoglobin A1c 5.5 % A1C (<5.7) Lactic Acid Level 1.2 mmol/L (0.4-2.0) Iron Level 71 ug/dL (65-175) Total Iron Binding Capacity 312 ug/dL (250-425) Percent Iron Saturation 22.8 % (20-55) Ferritin 24.0 ng/mL (22-322) Total Bilirubin 0.5 mg/dL (0.2-1.0) Aspartate Amino Transferase (AST) 25 U/L (13-40) Alanine Aminotransferase (ALT) 28 U/L (7-40) Alkaline Phosphatase 121 U/L (46-116) Troponin I High Sensitivity < 3 ng/L (</=54) C-Reactive Protein High Sensitivity 1.74 mg/dL (<1.0) Total Protein 6.2 g/dL (5.7-8.2) Albumin 3.9 g/dL (3.2-4.8) Lipase 41 U/L (12-53) Thyroid Stimulating Hormone (TSH) 2.22 uIU/mL (0.55-4.78) Other Laboratory Tests 1/9/25 06:04 Brief Hx & Hospital Course: 69-year-old male with past medical history of hypertension, ulcerative colitis presented to the ED with a chief complaint of rectal bleeding for 2 weeks prior to this admission. He has history of ulcerative colitis and was supposed to be on infusion once a week for 2 month and then every 8 weeks but patient took only 2 infusions and discontinued the infusion due to financial strain. After that he started experiencing bleeding during bowel movement and in 1st week 1 or 2 times blood mixed with stool but for last 1 week he has more than 7 or 8 times fresh blood with bowel movement and the consistency of the stool is soft. The patient also complains of left lower abdominal pain , colicky in nature ,09/10, radiates to the back without any aggravating factor and relieved after bowel movement and associated with nausea and dizziness. Reported patient tried mesalamine once before which initially worked then stopped working. Then his biology lecturer started him on [employer] later on Dr. Non-switch him to [facility]. He denies any blood thinner use, chest pain, shortness of breath , vomiting, hematuria, dysuria or any sick contact. Lab workup revealed hemoglobin 11.6, GFR 68, alkaline phosphatase 121, CRP 1.74. CT abdomen and pelvis revealed- Mild mucosal thickening of the rectum. No findings of bowel obstruction. No free air or free fluid. Punctate nonobstructing calculi the right and left kidneys. Compression fracture T10. During hospital course patient was treated conservatively. Patient's symptoms improved. Patient was able to tolerate diet well. Patient was adamant about going home today. Patient was seen by biology lecturer and recommended to continue mesalamine 800 mg p.o. t.i.d. and prednisolone 40 mg daily and to follow up with the biology lecturer Dr. Corral in 7-10 days. Patient verbalized understanding. Patient was advised to follow up with the primary care physician in 1 week. Patient's meds were sent to the pharmacy electronically. Patient was hemodynamically stable on discharge. General examination- awake, alert, conversant, HEENT- PEERLA, no acute nasal discharge Cardiovascular- S1-S2 audible, rate and rhythm regular, no murmur Respiratory- CTAB, no wheeze or rhonchi Gastrointestinal-mild abdominal tenderness+, bowel sound+. Nondistended Musculoskeletal-no acute joint swelling or tenderness or redness# Lower extremity- no leg edema Neurological- cranial nerves intact, no acute dysarthria or dysphagia Psychiatry- denies depression or SI or HI Skin- no acute rash or purpura Operations or Procedures Diagnostic Imaging Report : [id number] Signed PATIENT: KARISHMA MELÉNDEZACCT: [id number] UNIT: [id number] : 1955 LOC: ER ROOM / BED: / AGE / SEX: 69 / M ADM STATUS: REG ER SERVICE 02 ORDERING PHYSICIAN: RAKESH HILL DO PROCEDURE(s): ABPL - CT AB PEL WO CON-NO ORAL OR IV REASON: rectal bleed ORDER NUMBER(s): [id number], ACCESSION NUMBER(s): [id number] Exam: CT CT AB PEL WO CON-NO ORAL OR IV History: rectal bleed Comparison Study: None available at time of dictation. TECHNIQUE: Multidetector CT of the abdomen was performed from lung bases to pubic symphysis. Imaging was performed without IV contrast. Axial, coronal and sagittal multiplanar reformats were obtained from the axial data set by the technologist. Radiation Dose Information: CT Dose: CTDI volume is 7.35 mGy. Dose-length product is 362.28 mGy*cm FINDINGS: Evaluation of solid organs is limited due to lack of intravenous contrast use. Findings: Lung Bases: No acute or significant lung base finding. Normal heart size. No pleural or pericardial effusion. Small cyst left lobe of the liver. Scattered coronary artery calcifications. Liver: The liver is normal in size. No focal lesions. Gallbladder and Biliary Tree: Unremarkable Spleen: Unremarkable Pancreas: The pancreas is grossly normal in appearance. Adrenal Glands: Unremarkable Kidneys: Punctate nonobstructing calculi kidneys bilaterally Bladder: Grossly unremarkable for degree of distention. Bowel: The stomach is grossly normal in appearance. Small bowel and colon are normal in caliber and distribution. Mild mucosal thickening of the rectum. The appendix is not visualized; however, no secondary findings of acute appendicitis identified. Ascites: Absent Lymphadenopathy: No mesenteric, retroperitoneal or periportal lymphadenopathy. Abdominal Wall and Mesentery: Unremarkable. Vasculature: The visualized abdominal aorta is normal in size and caliber. Evaluation of abdominal and pelvic vessels is limited due to lack of intravenous contrast. Pelvic Organs: Unremarkable Musculoskeletal: No aggressive focal bony lesions, acute fractures or dislocation. Compression fracture T10 Soft tissues: Unremarkable IMPRESSION: 1. Mild mucosal thickening of the rectum. 2. No findings of bowel obstruction 3. No free air or free fluid 4. Punctate nonobstructing calculi the right and left kidneys. 5. Compression fracture T10 Radiation optimization: All CT scans at this facility use at least one of these dose optimization techniques: automated exposure control mA and/or kV adjustment per patient size (includes targeted exams where dose is matched to clinical indication) or iterative reconstruction. ATED BY: GLENDA GARZA Jr., DO DICTATED DATE/TIME: 04/09/242152 SIGNED BY: GLENDA GARZA Jr., SIGNED DATE/TIME: 04/09/242152 CC: Condition at Discharge: Stable Final Diagnosis/Problems List # Lower GI bleeding likely secondary to flare-up of ulcerative colitis # suspected acute exacerbation of ulcerative colitis # Acute proctitis likely due to flare-up of ulcerative colitis #Normocytic anaemia likely secondary to per-rectal bleeding #Punctate nonobstructing calculi the right and left kidneys. #Back pain- Compression fracture T10 Discharge Disposition: Home Discharge Instruct/Medications Diet: Regular Activity: No Restrictions, As Tolerated Follow Up/Referral: please follow up with your PCP in one week follow up with Gastroenetrologist in 7-10days/DR. CORRAL [employer]ARM BOSS Please be compliant with medications Medications: mesalamine 800 MG P.O. 3 TIMES A DAY prednisone 40 MG DAILY pantoninx 40 MG DAILY Resume home pain medication. Discharge Statement: "Patient was advised to return to the ER or call 911 if any headaches, dizziness, shortness of breath, chest pain, abdominal pain, bleeding, fevers, or worsening of medical condition. Patient was counseled about treatment plan, medications, possible side effects, patientverbalized understanding. All questions were answered to the best of my ability. This discharge took greater then 30 minutes in planning, reviewing documentation, counseling the patient, and discussing with other team members." ASSESSMENT ASSESSMENT Assessment # Lower GI bleeding likely secondary to flare-up of ulcerative colitis # suspected acute exacerbation of ulcerative colitis # Acute proctitis likely due to flare-up of ulcerative colitis # Normocytic anaemia likely secondary to per-rectal bleeding #Punctate nonobstructing calculi the right and left kidneys. #Back pain- Compression fracture T10 Date of Service: Apr 11, 2024 Billing Provider: BUCK NOVA MD Common Visit Codes: 53892-NDZ/OBS DISCH DAY >30min IGNACIA WEISS RESIDENT Apr 11, 2024 12:42 BUCK NOVA MD Apr 11, 2024 18:48
[2024-04-11] MEDS ORDERED: PANT40T PO (12:46)
[2024-04-11] MEDS ORDERED: PRED20TA2 PO (12:46)
[2024-04-11] MEDS ORDERED: MESA10003 RE (12:46)
[2024-04-11 13:18] VITALS: TEMP 36.6
--- NOTE | 2024-04-11 22:11 | DVHPN2 ---
Progress Note Date Seen: Apr 11, 2024 Resident Creating Document: HUI RAE RESIDENT Medical Necessity Reason Pt with a Central, PICC or Fol: No Medical Necessity Reason Ulcerative colitis flare up Subjective Review of Systems This is a 69-year-old male his a history UC admitted with rectal bleed, on and off for one-week got worse worse in one day.Patient had abdominal pain periumbilical area, for two weeks progressively getting worse Patient has nausea. No vomiting. According to the patient, he used to take Humira and was alter stwitched to Entyvio,but his co-pay was a lot and he was unable to pay. Thus, he missed 2 sessions of infusion leading to the current UC flare. Seen by gastro group. Last colonoscopy two years ago. Patient was scheduled for an outpatient colonoscopy March 2024, was not completed due to insurance issues. Patient also complains of back pain which is radiating down his legs current blood work shows Hgb: 11.6--> 9.4 wbc: 9.8 liver enzymes: wnl CT abdomen::Mild mucosal thickening of the rectum. Objective vital signs Vital Sign Date Time Temp Pulse Resp B/P (MAP) Pulse Ox O2 Delivery O2 Flow Rate FiO2 04/11/24 13:18 36.6 04/11/24 12:30 79 16 145/87 (106) 99 04/11/24 08:11 Room Air* 0 21 Total Intake and Output 04/10/24 04/10/24 04/11/24 15:00 23:00 07:00 Intake Total 200 ml 325 ml Balance 200 ml 325 ml Examination Physical exam: General: NAD, AAOX3 Chest: lung shaw clear to auscultation Heart: RRR, no murmur Abdomen: non-distended, mild tenderness to palpation, +BS laboratory and microbiology Laboratory Tests 04/11/24 06:04 Test 04/11/24 06:04 Range/Units Serum Glucose 116 H 74-106 mg/dL Problem List/Assessment/Plan Problem List/Assessment/Plan Ulcerative colitis flare up --> Continue steroid --> Continue Mesalamine --> follow up at the GI clinic post discharge for care home management Acute proctitis likely due to flare-up of ulcerative colitis --> see management above Anemia --> hgb: 9.9 --> need EGD/ Colonoscopy outpatient GI bleed --> Improved Abdominal pain Back pain Diet: regular diet Plan: Goal of care discussed for more than 30 minutes Case and plan discussed with Dr. Hassan Thank you for allowing us to be part of this care Plan discussed with: Patient HUI RAE RESIDENT Apr 11, 2024 22:11
== END 2024-04-11 15:53 | disposition home or self-care (01) | DRG 386 ==
LOC: ER 20:25 → TELE 22:23 → TELE-WESTW 04-10 17:00
PROVIDERS: ADMIT Internal Medicine Geriatric Medicine; ATTEND Internal Medicine Geriatric Medicine
DX: K51.211 Ulcerative (chronic) proctitis with rectal bleeding (principal); M48.54XA Collapsed vertebra, not elsewhere classified, thoracic region, initial encounter for fracture; D64.9 Anemia, unspecified; I10 Essential (primary) hypertension; F17.210 Nicotine dependence, cigarettes, uncomplicated
CPT/HCPCS: 36415; 74176; 80048; 80053; 81001; 82728; 83036; 83540; 83550; 83605; 83690; 83735; 84443; 84484; 85025; 85652; 86141; 86850; 86870; 86900; 86901; 96361; 96374; 96375; G0378; J2405; J2470

== ENCOUNTER 2025-03-29 17:57 | Emergency (ER) | payer BC ==
[~2025-03-29] VITALS: Ht 157.5 cm; Wt 73.2 kg
[~2025-03-29 17:57] MED LIST changes: +MESA10003 RE; +PANT40T PO
--- NOTE | 2025-03-29 18:52 | DVH ---
EXAM: XY CHEST PORTABLE CLINICAL HISTORY: SOB TECHNIQUE: Single AP view of the chest WID: COMPARISON: None FINDINGS: Lines and tubes: None Chest: The heart size and pulmonary vasculature is within normal limits. No pleural effusion or pneumothorax. A few Subtle appearing somewhat nodular opacities in the right lower lung. The osseous structures are grossly intact. Multilevel thoracic spondylosis. IMPRESSION: 1. A few subtle somewhat nodular appearing opacities in the right lung base which could reflect scarring or atypical infection. Attention on follow-up chest radiograph after appropriate course of medical therapy recommended.
[2025-03-29 19:02] LABS: Urine Protein, UAD Negative (Negative)
[2025-03-29 19:20] LABS: Hematocrit 38.5 % (41.0-53.0); Hemoglobin 12.0 g/dL (13.5-17.5); Mean Corpuscular Hemoglobin 20.3 pg (28.0-32.0); Mean Corpuscular Volume 64.8 fL (80.0-100.0); Nucleated Red Blood Cells % 0.1 %
[2025-03-29 19:25] LABS: Albumin 4.5 g/dL (3.2-4.8); Anion Gap 9 (5-15); BUN/Creatinine Ratio 11.0 (10.0-20.0); Bilirubin, Total 0.4 mg/dL (0.2-1.0); Blood Urea Nitrogen 9 mg/dL (9-23); Calcium 9.5 mg/dL (8.7-10.4); Carbon Dioxide 28 mmol/L (20-31); Chloride 102 mmol/L (98-107); Magnesium 2.0 mg/dL (1.6-2.6); Potassium 4.0 mmol/L (3.5-5.1); Sodium 139 mmol/L (136-145); Total Protein 7.5 g/dL (5.7-8.2)
[2025-03-29 19:29] LABS: Alanine Aminotransferase 53 U/L (7-40); Alkaline Phosphatase 154 U/L (46-116); Glucose 108 mg/dL (74-106)
--- NOTE | 2025-03-29 19:32 | ED.PDOC ---
History of Present Illness HPI Comments 70-year-old male who came to ER for generalized weakness. Patient has history of hypertension but has poor compliance to his medications. For the past few hours, patient has been feeling generally weak, dizzy, imbalanced, and noted that his blood pressure was elevated. Denies any acute chest pains or shortness of breath. For the arrival blood pressure was 198/107 mm Hg Chief Complaint: General Weakness Time Seen by MD: 19:32 Primary Care Provider: UNKNOWN Reviewed Notes: Nurses Notes Allergies: Coded Allergies: NO KNOWN ALLERGIES (Unverified , 11/09/22) Home Meds Active Scripts Amlodipine Besylate (Amlodipine Besylate) 5 Mg Tab, 1 TAB PO DAILY, #90 TAB 3 Refills Prov:ALVARO GRAVES MD 03/29/25 Pantoprazole Sodium Sesquihydr (Pantoprazole Sodium) 40 Mg Tab, 40 MG PO DAILY for 30 Days, #30 TAB Prov:IGNACIA WEISS 04/11/24 Prednisone (Prednisone) 20 Mg Tab, 40 MG PO DAILY PRN for 10 Days, #10 MG Prov:IGNACIA WEISS 04/11/24 Mesalamine (Canasa) 1,000 Mg Sup, 800 MG RE TID for 30 Days, #90 SUPP Prov:IGNACIA WEISS 04/11/24 Tramadol Hcl (Tramadol Hcl) 50 Mg Tab, 50 MG PO Q8HP PRN for 10 Days, #30 TAB 0 Refills Prov:MOO GAUTHIER NP 01/03/24 Lidocaine (LIDODERM 5% TOPICAL PATCH) 1 Patch Ph, 1 PATCH TOP DAILY for 30 Days, #30 PATCH 0 Refills Prov:MOO GAUTHIER NP 01/03/24 Prednisone (Prednisone) 20 Mg Tab, 40 MG PO DAILY for 5 Days, #10 TAB 0 Refills Prov:MOO GAUTHIER NP 01/03/24 Ciprofloxacin Hcl (Ophth) (Ciprofloxacin Hcl) 0.3 % Dipika, 2 DROP OP QID for 5 Days, #1 BOTTLE 0 Refills Prov:MERVIN BALDERRAMA 11/09/22 Information Source: Patient Mode of Arrival: Ambulatory Past Medical History PAST MEDICAL HISTORY: HTN Surgical History: Denies all surgeries Family History Family History: Reviewed,noncontributory to illness Social History Smoker: Cigarettes Alcohol: Occasionally Drugs: Denies Drug Use Lives In: Home Constitutional: reports: fatigue, weakness; denies: chills, diaphoresis, fever, malaise, sweats, others EENTM: denies: blurred vision, double vision, ear bleeding, ear discharge, ear drainage, ear pain, ear ringing, eye pain, eye redness, hearing loss, mouth pain, mouth swelling, nasal discharge, nose bleeding, nose congestion, nose pain, photophobia, tearing, throat pain, throat swelling, voice changes, others Respiratory: denies: cough, hemoptysis, orthopnea, SOB at rest, shortness of breath, SOB with excertion, stridor, wheezing, others Cardiovascular: denies: chest pain, dizzy spells, diaphoresis, Dyspnea on exertion, edema, irregular heart beat, left arm pain, lightheadedness, palpitations, PND, syncope, others Gastrointestinal: denies: abdomen distended, abdominal pain, blood streaked bowels, constipated, diarrhea, dysphagia, difficulty swallowing, hematemesis, melena, nausea, poor appetite, poor fluid intake, rectal bleeding, rectal pain, vomiting, others Genitourinary: denies: burning, dysuria, flank pain, frequency, hematuria, incontinence, penile discharge, penile sore, pain, testicle pain, testicle swelling, urgency, others Neurological: reports: dizziness, headache; denies: fainting, left sided numbness, left sided weakness, numbness, paresthesia, pre-existing deficit, right sided numbness, right sided weakness, seizure, speech problems, tingling, tremors, weakness, others Musculoskeletal: denies: back pain, gout, joint pain, joint swelling, muscle pain, muscle stiffness, neck pain, others Integumetry: denies: bruises, change in color, change in hair/nails, dryness, laceration, lesions, lumps, rash, wounds, others Allergic/Immunocompromised: denies: Difficulty Healing, Frequent Infections, Hives, Itching, others Hematologic/Lymphatic: denies: anemia, blood clots, easy bleeding, easy bruising, swollen glands, others Endocrine: denies: excessive hunger, excessive sweating, excessive thirst, excessive urination, flushing, intolerance to cold, intolerance to heat, unexplained weight gain, unexplained weight loss, others Psychiatric: denies: anxiety, bipolar disorder, depression, hopeless, panic disorder, schizophrenia, sleepless, suicidal, others Physical Exam General Appearance: No Apparent Distress, Normal HEENT: Normal ENT Inspection, Pharynx Normal, TMs Normal Neck: Full Range of Motion, Non-Tender, Normal, Normal Inspection Respiratory: Chest Non-Tender, Lungs Clear, No Accessory Muscle Use, No Respiratory Distress, Normal Breath Sounds Cardiovascular: No Edema, No JVD, No Murmur, No Gallop, Normal Peripheral Pulses, Regular Rate/Rhythm Breast Exam: Deferred Gastrointestinal: No Organomegaly, Non Tender, No Pulsatile Mass, Normal Bowel Sounds, Soft Genitalia: Deferred Pelvic: Deferred Rectal: Deferred Extremities: No calf tenderness, Normal capillary refill, Normal inspection, Normal range of motion, Non-tender, No pedal edema Musculoskeletal : Apperance: Normal Neurologic: Alert, manager helpdesk II-XII nml as Tested, No Motor Deficits, Normal Affect, Normal Mood, No Sensory Deficits Cerebellar Function: Normal Reflexes: Normal Skin: Dry, Normal Color, Warm Lymphatic: No Adenopathy Was a procedure done? Was a procedure done?: No Differential Dx Considerations may include: Anemia, electrolyte imbalance, weakness, hypertension, medication noncompliance X-Ray, Labs, Meds, VS Vital Signs Date Time Temp Pulse Resp B/P (MAP) Pulse Ox O2 Delivery O2 Flow Rate FiO2 03/29/25 23:00 97.8 66 18 173/88 (116) 96 97.8 03/29/25 21:42 176/97 03/29/25 20:49 98.1 69 16 172/88 (116) 95 98.1 03/29/25 18:14 83 03/29/25 18:00 98.5 89 19 198/107 98 98.5 Lab Test 03/29/25 19:35 03/29/25 18:51 03/29/25 18:30 Range/Units Troponin I High Sensitivity 4 3 L </=54 ng/L White Blood Count 6.9 4.4-10.8 10^3/uL Red Blood Count 5.94 H 4.5-5.90 10^6/uL Hemoglobin 12.0 L 13.5-17.5 g/dL Hematocrit 38.5 L 41.0-53.0 % Mean Corpuscular Volume 64.8 L 80.0-100.0 fL Mean Corpuscular Hemoglobin 20.3 L 28.0-32.0 pg Mean Corpuscular Hemoglobin Concent 31.3 L 32.0-36.0 g/dL Red Cell Distribution Width 18.9 H 11.8-14.3 % Platelet Count 390 140-450 10^3/uL Mean Platelet Volume 6.0 L 6.9-10.8 fL Neutrophils (%) (Auto) 62.0 37.0-80.0 % Lymphocytes (%) (Auto) 25.4 10.0-50.0 % Monocytes (%) (Auto) 10.0 0.0-12.0 % Eosinophils (%) (Auto) 1.8 0.0-7.0 % Basophils (%) (Auto) 0.8 0.0-2.0 % Neutrophils # (Auto) 4.3 1.6-8.6 10 ^3/uL Lymphocytes # (Auto) 1.8 0.4-5.4 10 ^3/uL Monocytes # (Auto) 0.7 0-1.3 10 ^3/uL Eosinophils # (Auto) 0.1 0-0.8 10 ^3/uL Basophils # (Auto) 0.1 0-0.2 10 ^3/uL Nucleated Red Blood Cells 0.1 % Sodium Level 139 136-145 mmol/L Potassium Level 4.0 3.5-5.1 mmol/L Chloride Level 102 98-107 mmol/L Carbon Dioxide Level 28 20-31 mmol/L Anion Gap 9 5-15 Blood Urea Nitrogen 9 9-23 mg/dL Creatinine 0.82 0.700-1.30 mg/dL Glomerular Filtration Rate Calc 96 >90 mL/min BUN/Creatinine Ratio 11.0 10.0-20.0 Serum Glucose 108 H 74-106 mg/dL Calcium Level 9.5 8.7-10.4 mg/dL Magnesium Level 2.0 1.6-2.6 mg/dL Total Bilirubin 0.4 0.2-1.0 mg/dL Aspartate Amino Transferase (AST) 35 13-40 U/L Alanine Aminotransferase (ALT) 53 H 7-40 U/L Alkaline Phosphatase 154 H 46-116 U/L Total Protein 7.5 5.7-8.2 g/dL Albumin 4.5 3.2-4.8 g/dL Thyroid Stimulating Hormone (TSH) 1.33 0.55-4.78 uIU/mL Urine Color Light-yellow Yellow Urine Clarity Clear Clear Urine pH 6.5 5.0-9.0 Urine Specific [place] 1.013 1.001-1.035 Urine Protein Negative Negative Urine Ketones Negative Negative Urine Blood Negative Negative /uL Urine Nitrite Negative Negative Urine Bilirubin Negative Negative Urine Urobilinogen Normal Negative mg/dL Urine Leukocyte Esterase Negative Negative /uL Urine RBC <1 0 - 3 /hpf Urine Microscopic WBC 1 0-3 /HPF Urine Squamous Epithelial Cells None seen <5 /hpf Urine Bacteria None seen None Seen /hpf Urine Glucose Normal Normal mg/dL Current Medications Medications (Trade) Dose Ordered Sig/Sagrario Route Start Time Stop Time Status Last Admin Lisinopril (Zestril Tablet) 20 mg ONCE ONCE PO 03/29/25 21:15 03/29/25 21:16 DC 03/29/25 21:42 Time of 1ST Reevaluation: 19:30 Reevaluation 1ST: Unchanged Patient Education/Counseling: Diagnosis, Treatment Family Education/Counseling: No Family Present SEPSIS Sepsis Screen Date sepsis recognized/suspect: Mar 29, 2025 Time Sepsis recognized/suspect: 1803 Recent Procedure: No 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) Respiratory Rate >20: No Heart Rate >90: No Temp<36 C (96.8 F) or >38.3 C: No SBP <90 or MAP <65 mmHG: No New Acute Mental Status Change: No Is the patient on CPAP, BIPAP,: No Physician Orders Chest Portable (03/29/25 18:15) Electrocardigram (03/29/25 18:15) Vital Signs Date Time Temp Pulse Resp B/P (MAP) Pulse Ox O2 Delivery O2 Flow Rate FiO2 03/29/25 23:00 97.8 66 18 173/88 (116) 96 97.8 03/29/25 21:42 176/97 03/29/25 20:49 98.1 69 16 172/88 (116) 95 98.1 03/29/25 18:14 83 03/29/25 18:00 98.5 89 19 198/107 98 98.5 Laboratory Tests Test 03/29/25 18:51 White Blood Count 6.9 10^3/uL (4.4-10.8) Medications Medications Dose Ordered Sig/Sagrario Route Start Time Stop Time Status Last Admin Dose Admin Lisinopril 20 mg ONCE ONCE PO 03/29/25 21:15 03/29/25 21:16 DC 03/29/25 21:42 Departure 1 Departure Time of Disposition: 21:00 Impression: Primary Impression: Hypertensive urgency Additional Impression: Generalized weakness Disposition: 01 HOME / SELF CARE / HOMELESS Condition: Stable e-Prescriptions Amlodipine Besylate (Amlodipine Besylate) 5 Mg Tab 1 TAB PO DAILY, #90 TAB 3 Refills Prov: ALVARO GRAVES MD 03/29/25 Discharged With: Self Critical Care Note Critical Care Time?: No Stability Stability form required: No Heart Score Heart Score: Heart Score Response (Comments) Value History N/A 0 EKG N/A 0 Age N/A 0 Risk Factors N/A 0 Troponin N/A 0 Total 0 I personally scribed for ALVARO GRAVES MD ([email or web address]) on 03/29/25 at 19:32. Electronically submitted by Joon Rose ([email or web address]). ALVARO GRAVES MD Mar 29, 2025 19:32
[2025-03-29] MEDS ORDERED: AMLO1TAB22 PO (21:11)
[2025-03-29] MEDS: LISINOPRIL 20 MG TAB PO ONE (21:42)
[2025-03-29 23:00] VITALS: BP 173/88; PULSE 66; RESP 18; TEMP 97.8; O2SAT 96
== END 2025-03-29 23:11 | disposition home or self-care (01) ==
LOC: ER 17:57
DX: I16.0 Hypertensive urgency (principal); R53.1 Weakness; I10 Essential (primary) hypertension; F17.210 Nicotine dependence, cigarettes, uncomplicated; Z79.899 Other long term (current) drug therapy
CPT/HCPCS: 36415; 71045; 80053; 81001; 82947; 83735; 84443; 84484; 85025